=== PATIENT | female | born 1950 | race Caucasian/White ===

== ENCOUNTER → 2021-09-11 09:01 | Outpatient (CLI) | payer OTHER, SELFPAY ==
[2021-09-11 11:26] LABS: COVID19 -Nasal RAPID Negative (Negative)
== END ==
PROVIDERS: PCP Family Medicine; Visit Provider Surgery
DX: Z20.822 Contact with and (suspected) exposure to COVID-19 (principal); Z01.812 Encounter for preprocedural laboratory examination
CPT/HCPCS: 87635; C9803

== ENCOUNTER 2021-09-14 09:41 | Day surgery (SDC) | payer OTHER, SELFPAY ==
--- NOTE | 2021-09-14 | PATH_ITS ---
[facility] Accession Number: [id number] . 01 Material submitted: . colon - TRANSVERSE COLON POLYP . 01 Diagnosis: Transverse Colon, Polyp, Biopsy: Tubular adenoma [facility] [place] 09/16/2021 1033 Local . 01 Electronically signed: . Linh Castro MD, Pathologist NPI- [id number] . 01 Gross description: . TRANSVERSE COLON POLYP: Received in formalin is 1 fragment(s) of laughlin, soft tissue measuring 0.3 x 0.2 x 0.1 cm submitted entirely in 1 cassette(s) /QBJ 09/15/2021 0714 Local . 01 Pathologist provided ICD-10: D12.3 . 01 CPT . 128824 Specimen Comment: A courtesy copy of this report has been sent to [phone] Performed at: 01 [facility] [address] [place] [address] [id number] MD Maurice Lyman MD Phone: [phone]
[2021-09-14] MEDS: SODIUM CHLORIDE 0.9% 1,000 ML 100 ML IV (10:11)
[2021-09-14 10:12] VITALS: BP 96/59; PULSE 79; RESP 16; TEMP 36.2; O2SAT 97; BMI 25.7
--- NOTE | 2021-09-14 11:23 | PM.HP.1 ---
History of Present Illness History of Present Illness Date Patient Seen: 09/14/21 Time Patient Seen: 11:24 Chief complaint: SDC Narrative: Here for colon cancer screening. Patient History Family & Social History Social History: household members none Tobacco & Substance use: Smoking Status Never smoker alcohol intake current alcohol intake frequency 0-2 drinks per day Substance Use Type does not use Meds Home Medications and Allergies Home Medications Medication Instructions Recorded Confirmed Type clonazepam 1 mg tablet 1 mg PO PRN PRN Anxiety 09/14/21 09/14/21 History lisinopril 10 mg tablet 10 mg PO DAILY 09/14/21 09/14/21 History Allergies Allergy/AdvReac Type Severity Reaction Status Date / Time No Known Drug Allergies Allergy Verified 09/14/21 10:06 Review of Systems Review of Systems ROS: Yes All systems reviewed with the patient and are negative except as otherwise documented Exam Vital Signs (past 8 hours): - 09/14/21 10:12 Temperature 97.1 F L Pulse Rate 79 Respiratory Rate 16 Blood Pressure 96/59 L Pulse Oximetry 97 Oxygen Delivery Method Room Air Oxygen Delivery Method Room Air Const General: cooperative HENMT Head: normal to inspection Eyes General: appearance normal, both eyes and all related structures Neck Neck: normal visual inspection Chest Chest: normal inspection of the chest Resp Effort & Inspection: normal respiratory effort Cardio Rate: regular rate GI Inspection: normal to inspection Skin General: no rashes or lesions noted Neuro General: patient alert and patient awake Extrem General: normal to inspection and no pedal edema Psych Appearance: grossly normal Assessment & Plan Assessment & Plan narrative: 70-year-old indicated for colon cancer screening. Colonoscopy is pursued today. Time Spent With Patient Critical Care time: I spent a total of [] minutes of critical care time on this patient's care today; this time is exclusive of procedural time.
--- NOTE | 2021-09-14 11:25 | PM.PREOP ---
Pre-operative Note COVID-19 COVID-19 status: Negative Result date/Date tested (Pos, Neg/Pending): 09/11/21 Criteria for continued procedure: Possibility delay results in more complex future surgery or treatment Interval Note History & Physical reviewed/Exam performed by Physician: Yes Changes to H&P: No ASA Class (for procedural sedation): II
--- NOTE | 2021-09-14 12:16 | PM.OP.COLON ---
Operative Date/Time/Diagnoses Date of procedure: 09/14/21 Time of procedure: 12:16 Pre-op diagnosis: Colon cancer screening Post-op diagnosis: same Procedure & Clinicians Study performed: Colonoscopy with cold forceps polypectomy Same procedure as scheduled: Yes Indications: Colon cancer screening Surgeon: Roberto Chung Procedure Notes SCOAP/Timeout: Done Procedure in detail: After the risks and benefits were explained, written and verbal informed consent was obtained. The patient was brought into the procedure room and placed into the left lateral decubitus position. Please see nurse adventure challenge instructor notes for sedation details. Digital rectal examination was accomplished. The scope was introduced into the patient and advanced under direct visualization to the cecum as identified by the appendiceal orifice and ileocecal valve. The scope was slowly withdrawn to carefully examine the mucosa for any defects or lesions. Comprehensive imaging was accomplished throughout the rectum including the dentate line. The colon was decompressed, the scope was then removed from the patient who tolerated the procedure well. Adult colonoscope Bowel prep adequate Scope withdrawal time: 6 minutes Sedation minutes: 11 Complications: none Impression: There was a 3-4 mm polyp in the transverse colon removed with cold forceps. Otherwise no other significant pathology was appreciated throughout. The patient had grade 3 mild nonthrombosed nonbleeding hemorrhoids. Endoscopic diagnosis 1. Small colon polyp 2. grade 3 hemorrhoids Post-procedure Plan for aftercare: 1. Await histopathology. 2. Repeat colonoscopy 7 years. Disposition: PACU
[2021-09-14 12:20] VITALS: BP 107/43; PULSE 83; RESP 14; TEMP 36.2; O2SAT 96
[2021-09-14 12:24] VITALS: BP 112/47; PULSE 78; RESP 17; O2SAT 100
[2021-09-14 12:39] VITALS: BP 106/62; PULSE 73; RESP 15; O2SAT 100
[2021-09-14 12:40] VITALS: BP 115/63; PULSE 68; RESP 16; O2SAT 100
[2021-09-14 12:50] VITALS: BP 102/61; PULSE 69; RESP 14; TEMP 36.3; O2SAT 100
== END 2021-09-14 13:00 | disposition home or self-care (01) ==
PROVIDERS: PCP Family Medicine; Referring Provider Internal Medicine Gastroenterology; Visit Provider Internal Medicine Gastroenterology
PROC: 0DJD8ZZ Inspection of Lower Intestinal Tract, Via Natural or Artificial Opening Endoscopic (ICD-10-PCS; CPT 45378; principal; 2021-09-14 11:00)
DX: Z12.11 Encounter for screening for malignant neoplasm of colon (principal); K64.2 Third degree hemorrhoids; D12.3 Benign neoplasm of transverse colon
CPT/HCPCS: 45380; J2704

== ENCOUNTER → 2023-12-26 12:46 | Outpatient (CLI) | payer MEDICARE, SELFPAY ==
--- NOTE | 2023-12-26 13:00 | DI.RAD.S_ITS ---
PROCEDURE: XR DEXA AXIAL SKELETON INDICATIONS: Asymptomatic menopausal state COMPARISON: [facility], CR, DEXA COMPLETE, 10/24/2020, 13:41. FINDINGS: Lumbar Spine: Bone mineral density 1.023 g/cm2, T score -0.2, previously 0.5 Left Hip: Bone mineral density 0.771 g/cm2, T score -1.4, previously-1.4. Right Hip: Bone mineral density 0.741 g/cm2, T score -1.6, previously -1.6. Fracture Risk Calculation (when applicable): 10-year fracture risk of a major osteoporotic fracture 14 percent and of a hip fracture 3.5 percent. (T score greater or equal to -1.0 to: NORMAL) (T score from -1.1 to -2.4: OSTEOPENIA) (T score less than or equal to -2.5: OSTEOPOROSIS) IMPRESSION: 1. Normal bone density of the lumbar spine. 2. Osteopenia of the hips. Follow-up guidelines as follows: Osteoporosis: Consider a repeat DEXA and Vertebral Fracture Assessment (VFA) exam in 2 years or sooner if medically necessary, to reassess this patient's status. Osteopenia: Consider a repeat DEXA in 2-3 years to reassess this patient's status, or if there is a new clinical indication. Normal: Consider a repeat DEXA in 5 years or sooner, or if there is a new clinical indication. All treatment decisions require clinical judgment and consideration of individual patient factors, including patient preferences, comorbidities, previous drug use, risk factors not captured in the FRAX model (e.g., frailty, falls, vitamin D deficiency, increased bone turnover, interval significant decline in bone density ) and possible under- or over-estimation of fracture risk by FRAX. In addition, the NOF Guide recommends that FDA-approved medical therapies be considered in postmenopausal women and men age >= 50 years with a: * Hip or vertebral (clinical or morphometric) fracture * T-score of <=-2.5 at the spine or hip * Ten-year fracture probability by FRAX of >= 3% for hip fracture or >=20% for major osteoporotic fracture. People with diagnosed cases of osteoporosis or at high risk for fracture should have regular bone mineral density tests. For patients eligible for Medicare, routine testing is allowed once every 2 years. The testing frequency can be increased to one year for patients who have rapidly progressing disease, those who are receiving or discontinuing medical therapy to restore bone mass, or have additional risk factors. Dictated by: Norberto Villatoro M.D. on 12/26/2023 at 16:47 Approved by: Norberto Villatoro M.D. on 12/26/2023 at 16:50
== END ==
PROVIDERS: PCP Family Medicine; Referring Provider Family Medicine; Visit Provider Family Medicine
DX: M85.89 Other specified disorders of bone density and structure, multiple sites (principal); Z78.0 Asymptomatic menopausal state
CPT/HCPCS: 77080